=== PATIENT | female | born 1930 | race Caucasian/White ===

== ENCOUNTER 2017-08-30 09:32 | Inpatient (IN) ==
[2017-08-30] MEDS ORDERED: SALINE FLUSH 10ml SYRINGE IVF PRN (09:40)
[2017-08-30] MEDS ORDERED: NS 500 ML IV ONE (09:40)
--- OUTSIDE RECORDS SUMMARY | 2017-08-30 09:45 | External Medical Summary | Continuity of Care Document ---
:1930 Author Organization [facility] Allergies Active Description Code Type Severity Reaction Onset Reported/ Identified Relationship Clinical to Patient Status Yes Mercurial mercu Aller I RASH 05/06/2011 Analogues ry gy ([place] ental ) Yes mercury Aller I RASH 05/06/2011 (elemental) gy Yes iodine NKMA N/A N/A 06/13/2013 Medications Medication Packaging Start Date Stop Date Route Dosage Sig 05/06/2011 PO 325 mg Tylenol PRN 05/06/2011 PO 2.5 mg Prednisone WEEKLY Problems Date Dx Attending Type Code Diagnosis Diagnosed By Coded 04/21/2015 Yeyo All Kip I51.9 Heart disease [facility], 04/21/2015 Yeyo All Notch [employer]able Movement Capture R35.0 Urinary frequency [facility], 04/21/2015 Yeyo [employer] Capture R39.15 Urinary urgency [facility], 04/21/2015 Yeyo All [employer] Capture I51.9 Heart disease [facility], 04/21/2015 Yeyo All [employer] Capture R35.0 Urinary frequency [facility], 04/21/2015 Yeyo All [employer] Capture R39.15 Urinary urgency [facility], 04/22/2015 Yeyo All Working N36.8 Mass of urethra [facility], 04/22/2015 Yeyo All Shin R30.9 Painful urination [facility], 04/22/2015 Yeyo All [employer] Capture N36.8 Mass of urethra [facility], 04/22/2015 Yeyo All Working R30.9 Painful Yeyo All micturition, unspecified 04/24/2015 Yeyo All Working N36.2 Urethral caruncle [facility], 04/24/2015 Yeyo, All Working R30.9 Painful urination [facility], 04/24/2015 Yeyo All Working N36.2 Urethral caruncle [facility], 04/24/2015 Yeyo All [employer] Capture R30.9 Painful Yeyo, All micturition, unspecified Procedures Code Description [place] [address] [facility] Urine Capacity 64566 [facility], 04/23/2015 Urinalysis,Complete 62100 [place], 04/27/2015 Cystourethroscopy 68983 [facility] [place] 04/27/2015 Urinalysis,Complete Results Test Result Range M153.0000 - 12/02/15 11:30 URINE CULTURE. CFU/ml L6003.0110 - 12/02/15 11:30 COLOR,URINE YELLOW YELLOW TURBIDITY, URINE CLEAR CLEAR SPECIFIC GRAVITY,URINE 1.020 1.015-1.025 PH, URINE - DIPSTICK 6.0 5.0-8.0 LEUKOCYTE ESTERASE ,URINE NEGATIVE NEGATIVE NITRITE,URINE NEGATIVE NEGATIVE PROTEIN,URINE - DIPSTICK NEGATIVE NEGATIVE GLUCOSE, URINE - DIPSTICK NEGATIVE NEGATIVE KETONES,URINE - DIPSTICK NEGATIVE NEGATIVE UROBILINOGEN,URINE 2.0 EU/DL NORMAL BILIRUBIN,URINE - DIPSTICK NEGATIVE NEGATIVE BLOOD, URINE 2+ NEGATIVE L600.0180 - 12/02/15 11:30 COLOR,URINE YELLOW YELLOW TURBIDITY, URINE CLEAR CLEAR SPECIFIC GRAVITY,URINE 1.020 1.015-1.025 PH, URINE - DIPSTICK 6.0 5.0-8.0 LEUKOCYTE ESTERASE ,URINE NEGATIVE NEGATIVE NITRITE,URINE NEGATIVE NEGATIVE PROTEIN,URINE - DIPSTICK NEGATIVE NEGATIVE GLUCOSE, URINE - DIPSTICK NEGATIVE NEGATIVE KETONES,URINE - DIPSTICK NEGATIVE NEGATIVE UROBILINOGEN,URINE 2.0 EU/DL NORMAL BILIRUBIN,URINE - DIPSTICK NEGATIVE NEGATIVE BLOOD, URINE 2+ NEGATIVE WBC,URINE 0-1 /HPF 0-5 RBC,URINE 5-10 /HPF 0-3 SQUAMOUS EPITHELIAL CELL,UR 0-5 BACTERIA,URINE TRACE NEGATIVE YEAST,URINE TRACE NEGATIVE Encounters ACCT No. Visit Discharge Status Pt. Type Provider Facility Loc./Unit Complaint Date/Time [id number] 04/15/2013 04/15/2013 CLS Outpatie 13:53:00 23:59:59 nt [id number] 04/25/2015 ACT OutpatiKaleb Martin 115 16:13:01 [facility] [id number] 04/24/2015 ACT Kaleb Heard 115 04:15:11 [facility] [id number] 01/06/2015 01/06/2015 Sera CruzeweliseoInt 2 [place] 8798 12:59:00 23:59:00 [facility] V[facility] [id number] 03/21/2014 03/21/2014 Sera Cruz [facility] physical 8724 09:08:00 23:59:00 nt [facility] [id number] 07/03/2014 Document [id number] 08:44:00 Registra tion [id number] 06/18/2014 Document [id number] 13:06:00 Registra tion [id number] 12/02/2015 12/02/2015 [facility] Andi Padilla LABN.KB 5897 13:32:00 23:59:59 nt [facility] [id number] 08/30/2017 Document [id number] 09:31:00 Registra tion
--- NOTE | 2017-08-30 09:54 | CT Scan Report ---
Indication: weakness PROCEDURE: CT head/brain wo con: Encounter: Initial Comparison: None Technique: Axial CT images through the head were performed without contrast. Iterative Reconstruction dose reducing technique was utilized. FINDINGS: Moderate atrophy. The ventricles are of normal size, shape, and contour for the patient's age. There are numerous areas of low attenuation in the white matter which most likely represent changes from chronic microvascular ischemia. The brainstem, cerebellum, and cerebral hemispheres otherwise have a normal morphology and CT attenuation. There is no evidence of midline displacement. No hemorrhage, signs of acute territorial stroke, mass effect, mass lesions, or edema is evident. The visualized portions of the skull base, midface, and calvarium demonstrate no abnormality. The paranasal sinuses are well aerated and free of significant disease. The tympanic and mastoid cavities appear normal. IMPRESSION: No acute intracranial abnormality or hemorrhage. Given the extensive white matter disease, a small area of acute ischemia could be easily obscured and further evaluation with MRI can be performed as clinically indicated. .
--- NOTE | 2017-08-30 11:29 | Emergency Department Report ---
Weakness HPI - General Chief complaint: Weakness Stated complaint: R sided weakness Time Seen by Provider: 08/30/17 09:39 - History of Present Illness HPI Narrative: 87-year-old female presents via EMS with new onset weakness. Patient was without any new deficit when she went to sleep last night, woke up at 4:15 and got out of bed. She fell and landed on her right side. She was assisted to stand up but required assistance to walk. She denies any new injuries from the fall. She did notice that she had weakness on the right side both upper and lower extremity. She went back to sleep, and she had this morning, staff recommended she come to the ER. She does have a history of dementia and is slightly confused. - Related Data Home Medications Medication Instructions Recorded Confirmed Acetaminophen 650 mg PO Q4H PRN 08/30/17 08/30/17 Amlodipine [Norvasc] 5 mg PO DAILY 08/30/17 08/30/17 Cholecalciferol (Vitamin D3) 1,000 unit PO DAILY 08/30/17 08/30/17 [Vitamin D3] Donepezil [Aricept 10 mg] 10 mg PO HS 08/30/17 08/30/17 Guaifenesin/Dextromethorphan 10 ml PO Q4H PRN 08/30/17 08/30/17 [Guaifenesin Dm Syrup] Hydrocodone/APAP 5/325 [[place] 1 tab PO HS 08/30/17 08/30/17 5/325] Loperamide [Imodium] 2 mg PO PRN PRN 08/30/17 08/30/17 Loratadine 10 mg PO DAILY 08/30/17 08/30/17 Milk of Magnesia [Mom] 30 ml PO BID PRN 08/30/17 08/30/17 Mirtazapine 7.5 mg PO HS 08/30/17 08/30/17 PEG 3350 17gm PACKET [Miralax] 8.5 - 17 gm PO DAILY PRN 08/30/17 08/30/17 PEG 3350 17gm PACKET [Miralax] 8.5 gm PO Q2D 08/30/17 08/30/17 Polyvinyl Alcohol/Povidone O/S 2 drop EACH EYE BID 08/30/17 08/30/17 [Refresh Classic] Sertraline [Zoloft] 100 mg PO DAILY 08/30/17 08/30/17 Uti Stat 30 ml PO BID 08/30/17 08/30/17 Allergies Allergy/AdvReac Type Severity Reaction Status Date / Time mercury (elemental) Allergy Intermediate RASH Verified 05/06/11 17:29 iodine Allergy Unknown Verified 08/30/17 09:48 Review of Systems All systems: reviewed and negative except as stated PFSH Dementia - Social History Smoking status: Never smoker Substance use type: does not use Physical Exam - Limitations Limitations: other (mild confusion) - General General appearance: alert - Normal Exams: Head:: Normocephalic without trauma Chest/Respirations:: Clear all [place], with good airflow, and symmetry bilaterally Cardiovascular:: Regular rate and rhythm, without murmur or gallop, Pulses 2+ all extremities, capillary refill, <2 seconds all extremities Abdomen:: Bowel sounds positive, soft, non-tender, non-distended, no hepatosplenomegaly, masses or bruits noted Neurological:: Patient is alert, and oriented, cranial nerves - Neurological Exam Neurological exam: Present: alert, CN II-XII intact, other (patient has decreased state auditor strength on the right upper extremity and decreased hip flexor strength and plantar flexion strength on right lower extremity. NIH stroke scale score 6 per nursing evaluation.). Absent: oriented X3, normal gait Course Vital Signs Temperature 97.8 F 08/30/17 09:30 Pulse Rate 64 08/30/17 09:30 Respiratory Rate 17 08/30/17 09:30 Blood Pressure 167/70 H 08/30/17 09:30 Pulse Oximetry 96 08/30/17 09:30 Temperature 97.8 F 08/30/17 09:42 Pulse Rate 61 08/30/17 11:16 Respiratory Rate 17 08/30/17 11:16 Blood Pressure 182/77 H 08/30/17 11:16 Pulse Oximetry 96 08/30/17 11:16 Weakness - [facility] Narrative Medical decision making narrative: Patient is being admitted to observation on medical floor. She does have symptoms appropriate to CVA. She has no acute injury from the fall. She'll be worked up by medical service. - Differential Diagnosis Differential diagnosis: Likely: acute myocardial infarction, hypoglycemia, dehydration - Medical Records Attestation: I reviewed the patient's medical records. - Lab Data Attestation: I reviewed the patient's lab results. Result diagrams: 08/30/17 10:01 08/30/17 10:01 Lab Results 08/30/17 08/30/17 08/30/17 Range/Units 10:01 10:01 10:19 WBC 5.5 (4.5-11.0) T/MM3 RBC 4.17 (4.00-5.20) M/MM3 Hgb 13.2 (12-16) GM/DL Hct 40.5 (36-46) % MCV 97.1 (80-100) UM3 MCH 31.7 (26-34) UUG MCHC 32.6 (31-37) GM/DL RDW Std Deviation 43.4 (36.9-50.2) FL Plt Count 204 (130-400) T/MM3 MPV 9.5 (9.4-12.4) UM3 Immature Gran % (Auto) 0.2 (0.0-0.5) % Neut % (Auto) 55.5 (33-66) % Lymph % (Auto) 25.0 (23-45) % [place] % (Auto) 15.9 H (0-9.0) % Eos % (Auto) 2.9 (0-4) % Baso % (Auto) 0.5 (0-2) % Neut # (Auto) 3.1 (1.8-7.7) T/MM3 Lymph # (Auto) 1.4 (1-4.8) T/MM3 [place] # (Auto) 0.9 H (0-0.8) T/MM3 Eos # (Auto) 0.2 (0-0.5) T/MM3 Baso # (Auto) 0.0 (0-0.2) T/MM3 Abs Immat Gran (auto) 0.01 (0.00-0.03) T/MM3 Turbidity < 20 (0-20) Sodium 144 (136-146) MEQ/L Potassium 3.9 (3.6-5) MEQ/L Chloride 102 (98-107) MEQ/L Carbon Dioxide 33 H (22-30) MEQ/L Anion Gap 9 (5-15) meq/L BUN 14.0 (7-17) MG/DL Creatinine 0.6 L (0.7-1.2) mg/dL GFR Calculation 94 BUN/Creatinine Ratio 23 (6-26) RATIO Glucose 109 (65-110) MG/DL Calculated Osmolality 279 (261-280) MOSM/KG Calcium 10.0 (8.4-10.2) MG/DL Total Bilirubin 0.50 (0.20-1.30) MG/DL Icterus Index < 2 (0-7) AST 29 (14-36) U/L ALT 15 (1-35) U/L Alkaline Phosphatase 78 (38-126) U/L Total Protein 7.1 (6.3-8.2) g/dL Albumin 4.4 (3.5-5.0) g/dL Globulin 2.7 (2.4-3.6) G/DL Albumin/Globulin Ratio 1.6 (1.1-2.2) RATIO Plasma Lactate 1.5 (0.6-2.2) MMOL/L Specimen Hemolysis 30 H (0-25) Ur Collection Type Urine, void-cc/notcc Urine Color Yellow (YELLOW) Urine Clarity Sl cloudy Urine pH 6.5 (5.0-8.0) Ur Specific [place] <=1.005 L (1.015-1.025) Urine Protein Negative (NEGATIVE) Urine Glucose (UA) Negative (NEGATIVE) Urine Ketones Negative (NEGATIVE) Urine Occult Blood Negative (NEGATIVE) Urine Nitrate Negative (NEGATIVE) Urine Bilirubin Negative (NEGATIVE) Urine Urobilinogen 0.2 (NORMAL) EU/DL Ur Leukocyte Esterase Negative (NEGATIVE) Urinalysis Comment Microscopic not ind. - Radiology Data Attestation: I reviewed the patient's radiology results. Disposition Clinical Impression: CVA (cerebral vascular accident) Disposition: To OBS NM Condition: Stable Prescriptions: No Action Acetaminophen 650 mg PO Q4H PRN PRN Reason: Pain Milk of Magnesia [Mom] 30 ml PO BID PRN PRN Reason: Constipation Mirtazapine 7.5 mg PO HS Hydrocodone/APAP 5/325 [[place] 5/325] 1 tab PO HS Donepezil [Aricept 10 mg] 10 mg PO HS Polyvinyl Alcohol/Povidone O/S [Refresh Classic] 2 drop EACH EYE BID PEG 3350 17gm PACKET [Miralax] 8.5 gm PO Q2D Loratadine 10 mg PO DAILY Uti Stat 30 ml PO BID Sertraline [Zoloft] 100 mg PO DAILY Amlodipine [Norvasc] 5 mg PO DAILY Guaifenesin/Dextromethorphan [Guaifenesin Dm Syrup] 10 ml PO Q4H PRN PRN Reason: Cough Loperamide [Imodium] 2 mg PO PRN PRN PRN Reason: Diarrhea PEG 3350 17gm PACKET [Miralax] 8.5 - 17 gm PO DAILY PRN PRN Reason: Constipation Cholecalciferol (Vitamin D3) [Vitamin D3] 1,000 unit PO DAILY Referrals: Primary Care,[facility] [Primary Care Provider] - Time of Disposition: 11:35 - Seen By: physician
[2017-08-30] MEDS ORDERED: ACETAMINOPHEN 325 MG TABLET PO PRN (12:18)
[2017-08-30] MEDS ORDERED: HYDRALAZINE 20 MG/ML INJECTION IVP PRN (12:19)
--- NOTE | 2017-08-30 12:25 | History & Physical Report ---
History of Present Illness Date: 08/30/17 Chief complaint: Right arm weakness HPI: Lea is a 87-year-old female is brought to the emergency room today from [facility] for evaluation of acute right arm weakness. It is reported that patient went to bed approximately 2200 last night. At 4 a.m. she felt "slid out of bed and was placed back to bed without injury. This morning she awoke staff noticed she had right upper extremity weakness. She was then sent to the ER for acute evaluation. CBC was normal, history panel overall unremarkable. Venous lactate was normal at 1.5, urinalysis is normal. CT scan of the head revealed no acute intracranial mild AR hemorrhage, however, significant white matter disease. She was found to be hypertensive with a systolic greater than 200 at times. She was given IV fluid bolus, blood pressure has improved. Givens high suspicion of acute ischemic CVA. The hospitalist services were contacted and accepted patient for outpatient observation for further evaluation and treatment. Patient is seen while in the emergency room. She is alert, oriented to city, self, states that she knows the year, hasn't "8" in however, she thinks it still the 1900s. He does have significant dementia, however, is able to give appropriate history. 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 She also is able to give the name of her nephew, CAT. She denies having any pain, shortness of breath, nausea or vomiting. She does verbalize right arm weakness. Speak with patient's DPOA, Davey Cisse is her nephew. We discussed findings, possibility of acute ischemic CVA, advance directives and treatment wishes. The patient is a do not resuscitate. He would like to proceed with further testing to evaluate for acute ischemia. Review of Systems All systems PM: 10-point ROS was reviewed, no additional remarkable complaints except - Neurological Neurological: Present: as per HPI, focal weakness (RUE) Past Medical History Medical History Updates: Hypertension. Dementia. Depression. Osteoarthritis Surgical History: Cystoscopy- 2011. Bilateral Cataract. Colonoscopy. Right inguinal heriorrhaphy. Tonsilectomy- 1939 Family History: Twin sister 2 yrs ago. Medical hx unknown Family History: As Above - Social History Smoking status: Never smoker Substance use type: does not use Alcohol intake frequency: does not drink Housing: long term ([facility]) Current occupational status: retired (RN) Social history: Resides at [facility] under the care of Dr Roa Retirecayden RN who worked at [employer] in [place] with her twin sister for over 30 yrs Twin sister diet 2 years ago Another sister diet several weeks ago Caden Cisse- Nephew is her DPOA ([phone]) Medications Home Medications Medication Instructions Recorded Confirmed Type Acetaminophen 650 mg PO Q4H PRN 08/30/17 08/30/17 History Amlodipine [Norvasc] 5 mg PO DAILY 08/30/17 08/30/17 History Cholecalciferol (Vitamin D3) 1,000 unit PO DAILY 08/30/17 08/30/17 History [Vitamin D3] Donepezil [Aricept 10 mg] 10 mg PO HS 08/30/17 08/30/17 History Guaifenesin/Dextromethorphan 10 ml PO Q4H PRN 08/30/17 08/30/17 History [Guaifenesin Dm Syrup] Hydrocodone/APAP 5/325 [[place] 1 tab PO HS 08/30/17 08/30/17 History 5/325] Loperamide [Imodium] 2 mg PO PRN PRN 08/30/17 08/30/17 History Loratadine 10 mg PO DAILY 08/30/17 08/30/17 History Milk of Magnesia [Mom] 30 ml PO BID PRN 08/30/17 08/30/17 History Mirtazapine 7.5 mg PO HS 08/30/17 08/30/17 History PEG 3350 17gm PACKET [Miralax] 8.5 - 17 gm PO DAILY PRN 08/30/17 08/30/17 History PEG 3350 17gm PACKET [Miralax] 8.5 gm PO Q2D 08/30/17 08/30/17 History Polyvinyl Alcohol/Povidone O/S 2 drop EACH EYE BID 08/30/17 08/30/17 History [Refresh Classic] Sertraline [Zoloft] 100 mg PO DAILY 08/30/17 08/30/17 History Uti Stat 30 ml PO BID 08/30/17 08/30/17 History Allergies Allergy/AdvReac Type Severity Reaction Status Date / Time mercury (elemental) Allergy Intermediate RASH Verified 05/06/11 17:29 iodine Allergy Unknown Verified 08/30/17 09:48 Exam Vital Signs: Temperature 97.8 F 08/30/17 09:42 Pulse Rate 68 08/30/17 12:00 Respiratory Rate 16 08/30/17 12:00 Blood Pressure 163/73 H 08/30/17 12:00 Pulse Oximetry 97 08/30/17 12:00 Height/Weight/BMI: Height 1.57 m Weight 54.5 kg - Constitutional Present: no acute distress, well nourished, well developed - Routine HEENT Exam Eye: Present: EOMI ENT: Present: mucous membranes moist, dentition normal - Routine Respiratory Exam Present: CTA bilaterally. Absent: wheezes - Routine Cardiovascular Exam Present: RRR, S1, S2. Absent: murmur - Routine Abdominal Exam Present: soft, normoactive bowel sounds, non distended. Absent: tenderness - Routine Extremities Exam Present: pulses intact - Routine Skin Exam Present: intact, dry, warm - Routine Neurological Exam Present: alert, oriented X3, CN II-XII intact, motor deficit (RUE), pronator drift, moving all extremities, vision grossly intact, hearing grossly intact, normal speech - Routine Psychiatric Exam Present: normal affect Results - Labs CBC & Chem 7: 08/30/17 10:01 08/30/17 10:01 Assessment and Plan Assessment and Plan: Impression Right arm weakness Concern for CVA Hypertension Dementia Depression Osteoarthritis Plan Admit patient outpatient observation under the care of Dr. Hunter for acute right arm weakness Initial CT in the emergency room did not reveal acute intracranial abnormality or hemorrhage Given patient's acute right arm weakness, will proceed with further CVA workup. Did speak with patient's DPOA, Caden Cisse (Nephew). Although patient is a do not resuscitate. He would like to proceed with further medical workup for CVA. Will obtain MRI of the brain, echocardiogram and carotid Doppler. Will monitor patient's cardiac telemetry. Monitor blood pressure carefully as patient has had systolics over 200 in the emergency room. Currently systolic blood pressure 160s. We'll continue on normal home medications. Consult placed to speech therapy, physical therapy, occupational therapy. SCDs to bilateral lower extremity for DVT prophylaxis. Again, patient does wish to be a do not resuscitate and this orders written. Will discuss further orders and plan of care with attending, Dr. Hunter At time of discharge medical care will return to primary care provider, Dr Roa 08/30/17-4:50-I examined the patient independently. I reviewed this chart, the patient history, and the [employer]CHANDISER's/PA's documented findings as above. We discussed and formulated the assessment and plan as above with the additions below.-Dr. Hunter Patient was seen this afternoon in her room. She states she's feeling okay. She notices right sided weakness. She also states that she needs to make sure she sits up right to swallow, otherwise she doesn't think she be able to swallow well. She denies any pain. She has no other complaints. She does not remember what happened very clearly this morning. On exam she is alert and in no acute distress. She states she is frequently forgetful about where she is. HEENT reveals sclerae to be anicteric and pupils are equal round and reactive. Oropharynx is moist. Speech sounds normal. Neck is supple. Carotids are silent. Chest is clear to auscultation. Cardiovascular reveals a regular rate and rhythm with occasional ectopic beat. On telemetry she has some PACs. Abdomen is soft and nontender. Extremities are free of edema. On neurologic exam, cranial nerves II through XII are intact other than some decreased sensation on the right cheek. Motor strength is 4 over 5 on the right and 5 over 5 on the left. She is slower with finger to nose testing on the right than the left. Motor strength in the right leg is slightly decreased at 4 over 5 and is normal at 5 over [address] head showed no acute abnormalities. MRI brain showed a small left acute basal ganglia and subinsular infarct. Arteries appeared normal on MRA. Carotid Dopplers showed no significant stenosis. Echocardiogram is pending. Impression Acute ischemic stroke-with right-sided weakness and questionable dysphagia Hypertension with elevated blood pressure Dementia Depression Plan We'll admit as inpatient secondary to stroke. Start aspirin 325 mg once daily and Lipitor 20 mg daily and very prevention. Permissive hypertension at this time. Neuro checks every 4 hours Await echocardiogram, continue on telemetry PT and OT have seen the patient and recommended either IRU or back to the long term Await speech therapy evaluation DC IV fluids Change to inpatient admission secondary to acute ischemic stroke DVT Prophylaxis: SCD's Resuscitation Status: Do Not Resuscitate - Physician Narrative Narrative: Date: 08/30/17 Time: 1221 Hospital Course Summary Disclaimer: The visit summary below is not to be considered part of the above Progress Note. Hospital Course: Impression Right arm weakness Concern for CVA Hypertension Dementia Depression Osteoarthritis Plan Admit patient outpatient observation under the care of Dr. Hunter for acute right arm weakness Initial CT in the emergency room did not reveal acute intracranial abnormality or hemorrhage Given patient's acute right arm weakness, will proceed with further CVA workup. Did speak with patient's DPOA, Caden Cisse (Nephew). Although patient is a do not resuscitate. He would like to proceed with further medical workup for CVA. Will obtain MRI of the brain, echocardiogram and carotid Doppler. Will monitor patient's cardiac telemetry. Monitor blood pressure carefully as patient has had systolics over 200 in the emergency room. Currently systolic blood pressure 160s. We'll continue on normal home medications. Consult placed to speech therapy, physical therapy, occupational therapy. SCDs to bilateral lower extremity for DVT prophylaxis. Again, patient does wish to be a do not resuscitate and this orders written. Will discuss further orders and plan of care with attending, Dr. Hunter At time of discharge medical care will return to primary care provider, Dr Roa
[2017-08-30] MEDS ORDERED: NS 1,000 ML IV SCH (12:30)
[2017-08-30 13:59] VITALS: BMI 19.9
--- NOTE | 2017-08-30 14:43 | Ultrasound Report ---
Indication: Right arm weakness PROCEDURE: US carotid doppler BI: TECHNIQUE: Grayscale, color and duplex Doppler imaging was performed of the carotid systems bilaterally. Velocities in cm/sec - validated velocity measurements with angiographic measurements, velocity criteria are extrapolated from diameter data as defined by the Society of Radiologists in Ultrasound Consensus Conference Radiology 2003; 229;340-346. RIGHT: PSV ICA 89 EDV ICA 14 PSV CCA 63 EDV CCA 2 SVR 1.4 PSV ECA 88 ICA Diameter reduction 20%-40% (1.2-1.4 [id number])% LEFT: PSV ICA 89 EDV ICA 18 PSV CCA 60 EDV CCA 6 SVR 1.5 PSV ECA 85 ICA Diameter reduction 20%-40% (1.2-1.4 [id number])% The right vertebral artery is patent with cephalic flow. The left vertebral artery is patent with cephalic flow. Mild atherosclerotic plaque for age. No velocity elevation. IMPRESSION: No hemodynamically significant carotid stenosis. .
[2017-08-30] MEDS: POLYETHYL GLYCOL 3350 17gm PACKET PO SCH (15:01)
--- NOTE | 2017-08-30 15:54 | Magnetic Resonance Report ---
Indication: right arm weakness, R/O CVA PROCEDURE: MR head/brain/ang head wo con: Encounter: Initial Comparison: Head CT from today Technique: Multiplanar, multisequence, MR imaging of the head without contrast was acquired. MRA imaging of the head without contrast was acquired. Maximum intensity projection (MIP) reformatted images were produced. 3-dimensional volume rendered imaging of the [place] was performed by the technologist on a dedicated workstation. Findings: MRI head: Moderate atrophy. Acute diffusion restriction is seen in the left external capsule and subinsular region, best seen on diffusion weighted images 12 and 13. This area has corresponding T2/FLAIR hyperintensity as expected. The ventricles are of normal size, shape, and contour for the patient's age. There are numerous additional areas of T2-weighted and T2 FLAIR weighted signal abnormality in the deep frontoparietal white matter that most likely represent small vessel ischemic disease. There is no evidence of an intracranial mass lesion, intracranial hemorrhage, or hydrocephalus. The visualized portions of the orbits, calvarium, paranasal sinuses, and skull base demonstrate no significant abnormality. MRA head: The intracranial portions of the vertebral arteries, internal carotid arteries, and their major branches show no significant stenosis or other vascular anomaly. No aneurysms or vascular malformations are evident. Impression: 1. MRI head: Small acute left basal ganglia and subinsular infarct. This is in the MCA territory. 2. MRA head: No evidence of intracranial vascular occlusion, aneurysm or flow-limiting arterial stenosis. Impression 1 was discussed with the attending physician at 1545 on August 30, 2017. .
--- NOTE | 2017-08-30 16:51 | Echocardiogram ---
DATE OF PROCEDURE 08/30/2017 PROCEDURE PERFORMED 2D echocardiography, M-mode, full color spectral Doppler assessment. FINDINGS 1. LEFT VENTRICLE. Left ventricle appears normal in size. Normal left ventricular wall thickness is noted. Normal left ventricular systolic function noted. Estimated left ventricular ejection fraction is 60-65%. 2. RIGHT VENTRICLE. Right ventricle appears normal in size. Normal right ventricular wall thickness noted. Normal right ventricular systolic function noted. 3. RIGHT ATRIUM. Right atrium appears mildly enlarged. 4. LEFT ATRIUM. Left atrium appears mildly enlarged. 5. INTERATRIAL SEPTUM. Interatrial septum appears aneurysmal but no interatrial shunting noted by color Doppler. 6. MITRAL VALVE. There is moderate posterior mitral annular calcification noted. There is mild mitral regurgitation noted. No significant mitral stenosis noted. 7. AORTIC VALVE. Aortic valve appears trileaflet. There is moderate calcification noted on three leaflets. No significant aortic stenosis. There is mild aortic regurgitation noted. 8. TRICUSPID VALVE. Tricuspid valve appears normal in structure, with mild tricuspid regurgitation noted. 9. PULMONIC VALVE. Pulmonic valve poorly visualized on today's study. Trivial pulmonic regurgitation noted. 10. EXTRACARDIAC. No significant pericardial effusion noted. 11. INFERIOR VENA CAVA. Inferior vena cava appears normal in size, normal respirophasic variation is noted. 12. PULMONARY ARTERY. Estimated pulmonary artery systolic pressure appears to be within normal range, estimated at 30-35 mmHg. CONCLUSION 1. Normal left ventricular systolic function, estimated left ventricular ejection fraction of 60-65%. Grade I diastolic dysfunction (abnormal relaxation ). 2. Normal right ventricular systolic function. 3. Mild mitral regurgitation. 4. Aortic valve sclerosis without significant stenosis. 5. Mild aortic regurgitation noted. 6. Mild tricuspid regurgitation noted. 7. Inferior vena cava appears normal in size with normal respirophasic variation. [facility]
[2017-08-30] MEDS: ASPIRIN 325 MG TABLET PO SCH (17:21)
[2017-08-30] MEDS: MIRTAZAPINE 15 MG TABLET PO SCH (20:05)
[2017-08-30] MEDS: ATORVASTATIN 20 MG TABLET PO SCH (20:05)
[2017-08-30] MEDS: REFRESH CLASSIC Eye Drops 0.4ml EACH EYE SCH (20:06)
[2017-08-30] MEDS: DONEPEZIL 10 MG TABLET PO SCH (20:06)
[2017-08-31] MEDS: SERTRALINE 100 MG TABLET PO SCH (08:49)
[2017-08-31] MEDS: LORATADINE 10 MG TABLET PO SCH (08:49)
[2017-08-31] MEDS: REFRESH CLASSIC Eye Drops 0.4ml EACH EYE SCH ×2 (08:49→21:42)
[2017-08-31] MEDS: ASPIRIN 325 MG TABLET PO SCH (08:49)
[2017-08-31] MEDS ORDERED: AMLODIPINE 5 MG TABLET PO SCH (09:00)
--- NOTE | 2017-08-31 10:34 | Progress Note ---
- Date 08/31/17 Subjective: Lea is seen today in follow up. She is initially ambulating in the [place] with physical therapy. PT noted right leg and foot are more coordinated with ambulation then yesterday. He continues to have some right hand weakness with diminished coordination. Patient otherwise has no complaints of pain, shortness of breath or GI complaints. Tight is good. Patient did eat 75% of breakfast. Blood pressure 147/69 this morning. Objective Vital signs: Temperature 96.8 F 08/31/17 07:40 Pulse Rate 53 L 08/31/17 07:40 Respiratory Rate 16 08/31/17 07:40 Blood Pressure 147/69 H 08/31/17 07:40 Pulse Oximetry 96 08/31/17 07:40 Height/Weight/BMI: Height 1.63 m Weight 52 kg Body Mass Index 19.9 - Constitutional Present: no acute distress, well nourished, well developed - Routine HEENT Exam Eye: Present: EOMI ENT: Present: mucous membranes moist, dentition normal - Routine Respiratory Exam Present: CTA bilaterally. Absent: wheezes - Routine Cardiovascular Exam Present: RRR, S1, S2. Absent: murmur - Routine Abdominal Exam Present: soft, normoactive bowel sounds, non distended. Absent: tenderness - Routine Extremities Exam Present: no edema, pulses intact - Routine Skin Exam Present: intact, dry, warm - Routine Neurological Exam Present: alert, oriented X3, CN II-XII intact, motor deficit (3/5 strength in right upper ext), moving all extremities - Routine Lymphatic Exam Lymphatic: Absent: adenopathy - Routine Psychiatric Exam Present: normal affect, normal thought process, cooperative Results - Labs CBC & Chem 7: 08/30/17 10:01 08/31/17 04:29 Assessment and Plan Assessment and Plan: Impression Acute ischemic stroke-with right-sided weakness and questionable dysphagia Hypertension Dementia Depression Osteoarthritis Plan Overall patient is doing well today. Will continue to work on strengthening with physical therapy and occupational therapy. Continues on aspirin 325 milligrams daily and Lipitor 20. Will monitor daily Speech therapy recommends soft diet, patient may have thin water. If in the upright position and supervised Echocardiogram did reveal EF of 60-65% with a grade 1 diastolic dysfunction Permissive [id number] systolic currently SCDs to bilateral lower extremity for DVT prophylaxis Patients- Caden SHELTON (Nephew) At time of discharge she will hopefully return to [facility] - Time spent with patient Time with patient PN: 35 minutes - Physician Narrative Physician: other (Millie Santiago MD) Narrative: Date: 08/31/17 Time: 1031 I have independently interviewed and examined patient. Patient chart reviewed. Case discussed with my HAND PLATE STACKER. Care plan developed with my supervision, agree with above. Patient resting in bedside chair. Reports able to work with PT, OT as tolerated. Continue aspirin and atorvastatin. Recommendation from speech therapy for soft diet with water, order placed. Physical exam: AAO x 3, NAD PERRLA, EOMI S1 and S2 heard on auscultation, no murmurs Lungs clear to auscultation bilaterally, no wheezing, no crackles Abdomen soft, nontender, positive bowel sounds No edema bilateral lower extremities. Strength 4/5 right upper extremity, 5/5 left upper and bilateral lower extremities Impression - acute ischemic CVA with residual right upper extremity weakness and some dysphagia. Hypertension, history of dementia Plan - continue aspirin, Lipitor, continue PT/OT. Diet changed to soft diet with thin liquids. Aspiration precautions. Hospital Course Summary Disclaimer: The visit summary below is not to be considered part of the above Progress Note. Hospital Course: Impression Right arm weakness Concern for CVA Hypertension Dementia Depression Osteoarthritis Plan Admit patient outpatient observation under the care of Dr. Hunter for acute right arm weakness Initial CT in the emergency room did not reveal acute intracranial abnormality or hemorrhage Given patient's acute right arm weakness, will proceed with further CVA workup. Did speak with patient's DPOA, Caden Cisse (Nephew). Although patient is a do not resuscitate. He would like to proceed with further medical workup for CVA. Will obtain MRI of the brain, echocardiogram and carotid Doppler. Will monitor patient's cardiac telemetry. Monitor blood pressure carefully as patient has had systolics over 200 in the emergency room. Currently systolic blood pressure 160s. We'll continue on normal home medications. Consult placed to speech therapy, physical therapy, occupational therapy. SCDs to bilateral lower extremity for DVT prophylaxis. Again, patient does wish to be a do not resuscitate and this orders written. Will discuss further orders and plan of care with attending, Dr. Hunter At time of discharge medical care will return to primary care provider, Dr Roa 08/31/17 Overall patient is doing well today. Will continue to work on strengthening with physical therapy and occupational therapy. Continues on aspirin 325 milligrams daily and Lipitor 20. Will monitor daily Speech therapy recommends soft diet, patient may have thin water. If in the upright position and supervised Echocardiogram did reveal EF of 60-65% with a grade 1 diastolic dysfunction Permissive [id number] systolic currently SCDs to bilateral lower extremity for DVT prophylaxis Patients- Caden SHELTON (Nephew) At time of discharge she will hopefully return to [facility]
[2017-08-31] MEDS: MIRTAZAPINE 15 MG TABLET PO SCH (21:43)
[2017-08-31] MEDS: DONEPEZIL 10 MG TABLET PO SCH (21:43)
[2017-08-31] MEDS: ATORVASTATIN 20 MG TABLET PO SCH (21:43)
[2017-09-01 07:27] VITALS: RESP 16
[2017-09-01] MEDS: REFRESH CLASSIC Eye Drops 0.4ml EACH EYE SCH ×2 (09:11→20:39)
[2017-09-01] MEDS: ASPIRIN 325 MG TABLET PO SCH (09:11)
[2017-09-01] MEDS: SERTRALINE 100 MG TABLET PO SCH (09:11)
[2017-09-01] MEDS: LORATADINE 10 MG TABLET PO SCH (09:11)
--- NOTE | 2017-09-01 12:12 | Progress Note ---
- Date 09/01/17 Subjective: Lea reports increasing right arm weakness and worsening of fine motor control. She states that her right leg continues to feel weak as well. She is noticing more dysphagia compared to baseline. She drooled slightly when she spoke. She denied headache. She denied chest pain or SOA. No abdominal pain or n /v. Objective Vital signs: Temperature 97.5 F 09/01/17 07:26 Pulse Rate 71 09/01/17 08:10 Respiratory Rate 16 09/01/17 07:26 Blood Pressure 142/74 H 09/01/17 07:26 Pulse Oximetry 99 09/01/17 07:26 Cardiac Ectopy: PAC's Height/Weight/BMI: Height 1.63 m Weight 52.8 kg Body Mass Index 19.9 - Constitutional Present: no acute distress, well nourished, well developed, thin - Routine HEENT Exam Head: Present: normocephalic Eye: Present: PERRL. Absent: conjunctival icterus, scleral injection ENT: Present: mucous membranes moist - Routine Respiratory Exam Present: CTA bilaterally - Routine Cardiovascular Exam Present: S1, S2, irregular rhythm - Routine Abdominal Exam Present: soft, normoactive bowel sounds, non distended, non tender - Routine Extremities Exam Present: no edema, pulses intact - Routine Back/Spine/Pelvis Exam Back/Spine: Present: full ROM - Routine Musculoskeletal Exam Musculoskeletal: Present: no clubbing or cyanosis - Routine Skin Exam Present: intact, dry, warm - Routine Neurological Exam Present: alert, oriented X3, CN II-XII intact, motor deficit (Right arm 3+/5 compared to 5/5 on left. Right leg 4/5 compared to 5/5 on left. ), moving all extremities, vision grossly intact, hearing grossly intact, normal speech. Absent: sensory deficit, altered mental status, facial asymmetry Decreased fine motor coordination on right hand with rapid alternating movements. +Pronator drift on right. - Routine Psychiatric Exam Present: normal affect, normal thought process, cooperative Results - Labs CBC & Chem 7: 08/30/17 10:01 09/01/17 10:28 Assessment and Plan Assessment and Plan: Impression Acute ischemic stroke-with right-sided weakness and questionable dysphagia Diastolic dysfunction Hypertension Dementia Depression Osteoarthritis Plan Reports increased right arm weakness and loss of motor control. Increased dysphagia. PT recommends IRU - screen placed. Cont PT/OT. Continue ASA, statin. BP - permissive hypertension in face of acute stroke. Hesitant to discharge today with worsening neurologic symptoms. DVT Prophylaxis: SCD's Resuscitation Status: Do Not Resuscitate - Physician Narrative Physician: Millie Santiago Narrative: Date: 09/01/17 Time: 1208 I have independently interviewed and examined patient. Patient chart reviewed. Case discussed with my SANITATION DIRECTOR. Care plan developed with my supervision, agree with above. Patient resting in at the time of interview. Reported earlier about some dysphagia however at the time of examination, does not reported. Continue strict aspiration precautions. Continued right upper extremity weakness. Continue aspirin and atorvastatin. Physical exam: AAO x 3, NAD PERRLA, EOMI S1 and S2 heard on auscultation, no murmurs Lungs clear to auscultation bilaterally, no wheezing, no crackles Abdomen soft, nontender, positive bowel sounds No edema bilateral lower extremities. Strength 4/5 right upper extremity, 5/5 left upper and bilateral lower extremities Impression - acute ischemic CVA with residual right upper extremity weakness and some dysphagia. Hypertension, history of dementia Plan - continue aspirin, Lipitor, continue PT/OT. Continue soft diet with thin liquids. Aspiration precautions. Hospital Course Summary Disclaimer: The visit summary below is not to be considered part of the above Progress Note. Hospital Course: Impression Right arm weakness Concern for CVA Hypertension Dementia Depression Osteoarthritis Plan Admit patient outpatient observation under the care of Dr. Hunter for acute right arm weakness Initial CT in the emergency room did not reveal acute intracranial abnormality or hemorrhage Given patient's acute right arm weakness, will proceed with further CVA workup. Did speak with patient's DPOA, Caden Cisse (Nephew). Although patient is a do not resuscitate. He would like to proceed with further medical workup for CVA. Will obtain MRI of the brain, echocardiogram and carotid Doppler. Will monitor patient's cardiac telemetry. Monitor blood pressure carefully as patient has had systolics over 200 in the emergency room. Currently systolic blood pressure 160s. We'll continue on normal home medications. Consult placed to speech therapy, physical therapy, occupational therapy. SCDs to bilateral lower extremity for DVT prophylaxis. Again, patient does wish to be a do not resuscitate and this orders written. Will discuss further orders and plan of care with attending, Dr. Hunter At time of discharge medical care will return to primary care provider, Dr Roa 08/31/17 Overall patient is doing well today. Will continue to work on strengthening with physical therapy and occupational therapy. Continues on aspirin 325 milligrams daily and Lipitor 20. Will monitor daily Speech therapy recommends soft diet, patient may have thin water. If in the upright position and supervised Echocardiogram did reveal EF of 60-65% with a grade 1 diastolic dysfunction Permissive [id number] systolic currently SCDs to bilateral lower extremity for DVT prophylaxis Patients- CAT, Caden Cisse (Nephew) At time of discharge she will hopefully return to [facility] 09/01/17 Reports increased right arm weakness and loss of motor control. Increased dysphagia. PT recommends IRU - screen placed. Cont PT/OT. Continue ASA, statin. BP - permissive hypertension in face of acute stroke.
[2017-09-01] MEDS: POLYETHYL GLYCOL 3350 17gm PACKET PO SCH (12:36)
[2017-09-01] MEDS: ATORVASTATIN 20 MG TABLET PO SCH (20:39)
[2017-09-01] MEDS: DONEPEZIL 10 MG TABLET PO SCH (20:39)
[2017-09-01] MEDS: MIRTAZAPINE 15 MG TABLET PO SCH (20:40)
[2017-09-02] MEDS ORDERED: ATORVASTATIN 20 MG TABLET PO SCH
[2017-09-02] MEDS ORDERED: ASPIRIN *EC* 81 MG TABLET PO SCH
[2017-09-02 08:01] VITALS: BP 173/66; TEMP 97.6; O2SAT 93
[2017-09-02 08:06] VITALS: PULSE 76
[2017-09-02] MEDS: SERTRALINE 100 MG TABLET PO SCH (08:17)
[2017-09-02] MEDS: ASPIRIN 325 MG TABLET PO SCH (08:17)
[2017-09-02] MEDS: LORATADINE 10 MG TABLET PO SCH (08:17)
[2017-09-02] MEDS: REFRESH CLASSIC Eye Drops 0.4ml EACH EYE SCH (08:17)
--- NOTE | 2017-09-02 12:44 | Discharge Summary ---
Discharge Information Date of admission: 08/30/17 16:44 Anticipated date of discharge: 09/02/17 Attending Physician: Millie Santiago MD Primary care physician: [facility] Consults: 08/31/17 11:35 Physician Consult [CONS] Routine Consulting Provider: Sheng Mckeon Reason For Exam: SNU Ordering Provider has Notified Compressor Station Engineer Chief: Yes 09/01/17 IRU Screening [Inpatient Rehab Screening] [CONS] Routine - Discharge Diagnosis (1) CVA (cerebral vascular accident) Status: Acute Right arm weakness Hypertension Dementia Depression Osteoarthritis - Laboratory Labs: 08/30/17 10:01 09/02/17 04:48 - Radiology Radiology: MRI of head, MRA of head performed on 08/30/2017 Impression: 1. MRI head: Small acute left basal ganglia and subinsular infarct. This is in the MCA territory. 2. MRA head: No evidence of intracranial vascular occlusion, aneurysm or flow-limiting arterial stenosis. CT head without contrast performed on 08/30/2017 IMPRESSION: No acute intracranial abnormality or hemorrhage. Given the extensive white matter disease, a small area of acute ischemia could be easily obscured and further evaluation with MRI can be performed as clinically indicated. Bilateral carotid artery Doppler ultrasound performed on 08/30/2017 IMPRESSION: No hemodynamically significant carotid stenosis. Echocardiogram performed on 08/30/2017 CONCLUSION 1. Normal left ventricular systolic function, estimated left ventricular ejection fraction of 60-65%. Grade I diastolic dysfunction (abnormal relaxation ). 2. Normal right ventricular systolic function. 3. Mild mitral regurgitation. 4. Aortic valve sclerosis without significant stenosis. 5. Mild aortic regurgitation noted. 6. Mild tricuspid regurgitation noted. 7. Inferior vena cava appears normal in size with normal respirophasic variation. History of Present Illness HPI: Lea is a 87-year-old female is brought to the emergency room today from [facility] for evaluation of acute right arm weakness. It is reported that patient went to bed approximately 2200 last night. At 4 a.m. she felt "slid out of bed and was placed back to bed without injury. This morning she awoke staff noticed she had right upper extremity weakness. She was then sent to the ER for acute evaluation. CBC was normal, history panel overall unremarkable. Venous lactate was normal at 1.5, urinalysis is normal. CT scan of the head revealed no acute intracranial mild AR hemorrhage, however, significant white matter disease. She was found to be hypertensive with a systolic greater than 200 at times. She was given IV fluid bolus, blood pressure has improved. Givens high suspicion of acute ischemic CVA. The hospitalist services were contacted and accepted patient for outpatient observation for further evaluation and treatment. Patient is seen while in the emergency room. She is alert, oriented to city, self, states that she knows the year, hasn't "8" in however, she thinks it still the 0s. He does have significant dementia, however, is able to give appropriate history. 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 She also is able to give the name of her nephew, CAT. She denies having any pain, shortness of breath, nausea or vomiting. She does verbalize right arm weakness. Speak with patient's DPOA, Davey Cisse is her nephew. We discussed findings, possibility of acute ischemic CVA, advance directives and treatment wishes. The patient is a do not resuscitate. He would like to proceed with further testing to evaluate for acute ischemia. Objective Vital signs: Temperature 97.6 F 09/02/17 08:00 Pulse Rate 76 09/02/17 08:00 Respiratory Rate 16 09/02/17 08:00 Blood Pressure 173/66 H 09/02/17 08:00 Pulse Oximetry 93 09/02/17 08:00 Cardiac Ectopy: PAC's Height/Weight/BMI: Height 1.63 m Weight 53 kg Body Mass Index 19.9 - Additional findings Additional findings: AAO x 3, NAD PERRLA, EOMI S1 and S2 heard on auscultation, no murmurs Lungs clear to auscultation bilaterally, no wheezing, no crackles Abdomen soft, nontender, positive bowel sounds No edema bilateral lower extremities. Strength 4/5 right upper extremity, 5/5 left upper and bilateral lower extremities Hospital Course This is a general summary of the patient's hospital course. For more details refer to the complete medical record. Hospital course: Impression Right arm weakness Concern for CVA Hypertension Dementia Depression Osteoarthritis Plan Admit patient outpatient observation under the care of Dr. Hunter for acute right arm weakness Initial CT in the emergency room did not reveal acute intracranial abnormality or hemorrhage Given patient's acute right arm weakness, will proceed with further CVA workup. Did speak with patient's Caden SHELTON (Nephew). Although patient is a do not resuscitate. He would like to proceed with further medical workup for CVA. Will obtain MRI of the brain, echocardiogram and carotid Doppler. Will monitor patient's cardiac telemetry. Monitor blood pressure carefully as patient has had systolics over 200 in the emergency room. Currently systolic blood pressure 160s. We'll continue on normal home medications. Consult placed to speech therapy, physical therapy, occupational therapy. SCDs to bilateral lower extremity for DVT prophylaxis. Again, patient does wish to be a do not resuscitate and this orders written. Will discuss further orders and plan of care with attending, Dr. Hunter At time of discharge medical care will return to primary care provider, Dr Roa 08/31/17 Overall patient is doing well today. Will continue to work on strengthening with physical therapy and occupational therapy. Continues on aspirin 325 milligrams daily and Lipitor 20. Will monitor daily Speech therapy recommends soft diet, patient may have thin water. If in the upright position and supervised Echocardiogram did reveal EF of 60-65% with a grade 1 diastolic dysfunction Permissive [id number] systolic currently SCDs to bilateral lower extremity for DVT prophylaxis Patients- DPCaden OLIVERA (Nephew) At time of discharge she will hopefully return to [facility] 09/01/17 Reports increased right arm weakness and loss of motor control. Increased dysphagia. PT recommends IRU - screen placed. Cont PT/OT. Continue ASA, statin. BP - permissive hypertension in face of acute stroke. 09/02/2017 Patient continues to have persistent right upper extremity weakness and some weakness and right lower extremity. Patient also reports some dysphagia although as per nursing staff, did have some breakfast and currently eating lunch at the time of interview. Case discussed with landscape architect and planner, Mrs. Dixon. Patient medically optimized. Plan for discharge to [facility] for further PT, OT, ST. Discussed with patient about plan for discharge, patient agreeable. All questions answered to her satisfaction. Time spent with patient: discharge greater than 30 minutes Resuscitation Status: Do Not Resuscitate Discharge Plan - Discharge Disposition Discharge Date: 09/02/17 Disposition: 03 To U Not ORC (SNF) *Condition: Stable Reason For Visit (Visit label in EMR): right hand weakness - Discharge Medications *Discharge Medications: New Atorvastatin [Lipitor] 20 mg PO HS #30 tab Aspirin [ASA] 325 mg PO DAILY #30 tab Continue Acetaminophen 650 mg PO Q4H PRN PRN Reason: Pain Milk of Magnesia [Mom] 30 ml PO BID PRN PRN Reason: Constipation Mirtazapine 7.5 mg PO HS Hydrocodone/APAP 5/325 [[place] 5/325] 1 tab PO HS Donepezil [Aricept 10 mg] 10 mg PO HS Polyvinyl Alcohol/Povidone O/S [Refresh Classic] 2 drop EACH EYE BID PEG 3350 17gm PACKET [Miralax] 8.5 gm PO Q2D Loratadine 10 mg PO DAILY Sertraline [Zoloft] 100 mg PO DAILY Amlodipine [Norvasc] 5 mg PO DAILY Guaifenesin/Dextromethorphan [Guaifenesin Dm Syrup] 10 ml PO Q4H PRN PRN Reason: Cough Loperamide [Imodium] 2 mg PO PRN PRN PRN Reason: Diarrhea PEG 3350 17gm PACKET [Miralax] 8.5 - 17 gm PO DAILY PRN PRN Reason: Constipation Cholecalciferol (Vitamin D3) [Vitamin D3] 1,000 unit PO DAILY No Action Uti Stat 30 ml PO BID - Discharge Packet/Instructions *Diet: Soft, low-salt diet with nectar thickened liquids. Thin liquids may be provided when patient is upright. Patient to be upright for about 30 minutes after meals. Strict aspiration precautions. *Activity: Fall precautions, as recommended by physical therapy. *Pain Management/Treatment: Acetaminophen as needed for pain. *Wound Care: Not applicable *Expected Signs/Symptoms: Patient may have continued weakness right upper and lower extremities and some difficulty with swallowing off and on. Patient encouraged to continue following PT, OT, ST recommendations. *Notify Physician if: Altered mental status, worsening localized weakness or change in sensation, chest pain, palpitations, shortness of breath, fever greater than 101F, flank pain, dysuria, intractable nausea, vomiting, abdominal pain or any other concerning findings. *During Business Hours Contact: Primary care provider office *After Business Hours Contact: Call [facility] at [phone] and ask that the on-call physician be paged *Pending Lab/Results: No Pending Lab - Referrals/Follow Up - Patient Handouts Patient Handouts: Weakness (GEN) - Dismissal Complete Discharge Instructions are:: Complete Physician Narrative - Narrative Attestation Narrative: Date: 09/02/17 Time: 1234
--- NOTE | 2017-09-02 13:08 | Extended Care Facility Orders ---
Admission Orders Admit to:: [facility] Allergies/Adverse Reactions: Allergies mercury (elemental) Allergy (Intermediate, Verified 05/06/11 17:29) RASH iodine Allergy (Unknown, Verified 08/30/17 09:48) Admitting Diagnosis: right hand weakness Admitting Physician: Millie Santiago MD Attending Physician: Millie Santiago MD Code Status: Do Not Resuscitate Anticiapted Length of Stay: 30 days or less Rehab Potential: fair Rehab Prognosis: fair Diet: 08/30/17 Dinner Regular Diet [DIET] Diet Modifications: Fluid Consistency: SYRNEC Food Consistency: SOFT Comment: may have thin water when upright & supervised May use Facility Protocol or Standing Orders: Yes May have flu vaccine: Yes Evaluations/Treatment: Speech, PT, OT, as needed [facility] Certification: I certify that SNF services are required to be given on an Inpatient basis because of the patients need for senior living care on a continuing basis for the condition(s) for which he/she received inpatient hospital services prior to his/her transfer to the SNF. SNF inpatient care is necessary for the following reasons - Additional Information Resident is Aware of Diagnosis: Yes
== END 2017-09-02 14:49 | DRG 66 ==
LOC: ED 09:32 → EDHOLD 09:32 → MED 11:40 → SUATTDRO 16:44 → MED 19:40
PROVIDERS: ADMIT Internal Medicine; ATTEND Internal Medicine